=== PATIENT | female | born 1970 | race African-American/Black ===

== ENCOUNTER 2019-11-12 18:12 | Observation (INO) | payer BC ==
[2019-11-12] MEDS ORDERED: ASPIRIN 81 MG TABLET, CHEWABLE PO ONE (18:42)
--- NOTE | 2019-11-12 18:45 | ER Document Report ---
ED Medical Screen (RME) - General Chief Complaint: Chest Pain Stated Complaint: CHEST PAIN, LEFT ARM PAIN Time Seen by Provider: 11/12/19 18:40 Mode of Arrival: Ambulatory Information source: Patient Notes: Patient presents complaining of chest pain that started around 330 this afternoon while she was at work. Patient states pain radiates to the left arm. She does report shortness of breath. No cough or cold symptoms. No nausea or vomiting. Patient does report a history of hypertension and asthma. I have greeted and performed a rapid initial assessment of this patient. A comprehensive ED assessment and evaluation of the patient, analysis of test results and completion of the medical decision making process will be conducted by additional ED providers. - Related Data Allergies/Adverse Reactions: No Known Allergies Allergy (Verified 11/12/19 18:33) Past Medical History - Social History Frequency of alcohol use: None Drug Abuse: None Physical Exam - Vital signs Vitals: Temp Pulse Resp BP Pulse Ox 97.5 F 86 16 153/108 H 100 11/12/19 18:23 11/12/19 18:23 11/12/19 18:23 11/12/19 18:23 11/12/19 18:23 - Respiratory Respiratory status: No respiratory distress Chest status: Tender Breath sounds: Normal - Cardiovascular Rhythm: Regular Heart sounds: S1 appreciated, S2 appreciated Course - Vital Signs Vital signs: Temp Pulse Resp BP Pulse Ox 97.5 F 86 16 153/108 H 100 11/12/19 18:23 11/12/19 18:23 11/12/19 18:23 11/12/19 18:23 11/12/19 18:23
--- NOTE | 2019-11-12 19:02 | EKG REPORT ---
SEVERITY:- ABNORMAL ECG - SINUS RHYTHM LEFT ATRIAL ABNORMALITY LEFT VENTRICULAR HYPERTROPHY BORDERLINE T ABNORMALITIES, INFERIOR LEADS : Confirmed by: Jens Matt MD 12-Nov-2019 19:00:26
--- NOTE | 2019-11-12 19:04 | RADIOLOGY REPORT (SQ) ---
EXAM DESCRIPTION: CHEST 2 VIEWS COMPLETED DATE/TIME: 11/12/2019 6:54 pm REASON FOR STUDY: cp COMPARISON: None. NUMBER OF VIEWS: Two view. TECHNIQUE: Frontal and lateral radiographic views of the chest acquired. LIMITATIONS: None. FINDINGS: LUNGS AND PLEURA: Low lung volumes. No opacities, masses or pneumothorax. No pleural eff usion. MEDIASTINUM AND HILAR STRUCTURES: No masses. No contour abnormalities. HEART AND VASCULAR STRUCTURES: Heart normal in size and contour. No evidence for failure. BONES: No acute findings. HARDWARE: None in the chest. OTHER: No other significant finding. IMPRESSION: LOW LUNG VOLUMES. NO SIGNIFICANT RADIOGRAPHIC FINDING IN THE CHEST. TECHNICAL DOCUMENTATION: JOB ID: [id number] 2010 [employer]- All Rights Reserved Reading location - IP/workstation name: [email or web address]
[2019-11-12 19:57] LABS: ABSOLUTE BASOPHILS # (AUTO) 0.1 10^3/uL (0.0-0.2); ABSOLUTE EOSINOPHILS # (AUTO) 1.2 10^3/uL (0.0-0.6); ABSOLUTE LYMPHOCYTES (AUTO) 2.1 10^3/uL (0.5-4.7); ABSOLUTE MONOCYTES (AUTO) 0.6 10^3/uL (0.1-1.4); BASOPHILS % (AUTO) 0.4 % (0-2); EOSINOPHILS % (AUTO) 9.8 % (0-6); HEMATOCRIT 39.5 % (36.0-47.0); HEMOGLOBIN 13.5 g/dL (12.0-15.5); LYMPHOCYTES % (AUTO) 17.6 % (13-45); MEAN CORPUSCULAR HEMOGLOBIN 28.6 pg (27.0-33.4); MEAN CORPUSCULAR HGB CONC 34.2 g/dL (32.0-36.0); MEAN CORPUSCULAR VOLUME 84 fl (80-97); MONOCYTES % (AUTO) 4.9 % (3-13); PLATELET COUNT 252 10^3/uL (150-450); RED BLOOD COUNT 4.72 10^6/uL (3.72-5.28); RED CELL DISTRIBUTION WIDTH 13.7 % (11.5-14.0); SEGMENTED NEUTROPHILS % (AUTO) 67.3 % (42-78); TOTAL CELLS COUNTED % (AUTO) 100 %; WHITE BLOOD COUNT 11.9 10^3/uL (4.0-10.5)
[2019-11-12 20:17] LABS: ALBUMIN 4.4 g/dL (3.5-5.0); ALKALINE PHOSPHATASE 130 U/L (38-126); ANION GAP 8 (5-19); ASPARTATE AMINO TRANSFERASE 19 U/L (14-36); BILIRUBIN,TOTAL 0.3 mg/dL (0.2-1.3); BLOOD UREA NITROGEN 16 mg/dL (7-20); CALCIUM 9.4 mg/dL (8.4-10.2); CARBON DIOXIDE 28 mmol/L (22-30); CHLORIDE 101 mmol/L (98-107); GLUCOSE 110 mg/dL (75-110); POTASSIUM 4.3 mmol/L (3.6-5.0); TOTAL PROTEIN 7.9 g/dL (6.3-8.2)
--- NOTE | 2019-11-12 20:39 | ER Document Report ---
ED General - General Chief Complaint: Chest Pain Stated Complaint: CHEST PAIN, LEFT ARM PAIN Time Seen by Provider: 11/12/19 18:40 Mode of Arrival: Ambulatory Notes: 49-year-old female presents the emergency department complaining of chest pain that she describes as a pressure that feels like somebody sitting on the center in the left side of her chest. States the pain radiates to her left arm gives her headache. It worsens with exertion, does not really relieved when sitting down. She also complains of shortness of breath and pleuritic chest pain. Denies any cough or fevers. Denies any numbness or tingling. Denies prior similar symptoms. Family history is only hypertension and cancer, no family history of coronary artery disease or stroke. - Related Data Allergies/Adverse Reactions: No Known Allergies Allergy (Verified 11/12/19 18:33) Past Medical History - General Information source: Patient - Social History Smoking Status: Never Smoker Frequency of alcohol use: None Drug Abuse: None Family History: Hypertension, Malignancy. denies: CAD, CVA Patient has suicidal ideation: No Patient has homicidal ideation: No - Past Medical History Cardiac Medical History: Reports: Hx Hypertension Pulmonary Medical History: Reports: Hx Asthma Past Surgical History: Reports: Hx Appendectomy, Hx Section - x3 Review of Systems - Review of Systems Constitutional: No symptoms reported EENT: No symptoms reported Cardiovascular: See HPI, Chest pain Respiratory: See HPI, Hurts to breathe, Short of breath Musculoskeletal: See HPI -: Yes All other systems reviewed and negative Physical Exam - Vital signs Vitals: Temp Pulse Resp BP Pulse Ox 97.5 F 86 16 153/108 H 100 11/12/19 18:23 11/12/19 18:23 11/12/19 18:23 11/12/19 18:23 11/12/19 18:23 Interpretation: Hypertensive - Notes Notes: GENERAL: Alert, interacts well. No acute distress. HEAD: Normocephalic, atraumatic EYES: Pupils equal, round and reactive to light, extraocular movements intact. ENT: Oral mucosa moist, tongue midline. NECK: Full range of motion, supple, trachea midline. LUNGS: Clear to auscultation bilaterally, no wheezes, rales or rhonchi, no respiratory distress. No sternal tenderness palpation however she does have some tenderness to palpation when I push on her lateral ribs on both the left and right side. HEART: Regular rate and rhythm, no murmurs, gallops, rubs. ABDOMEN: Soft, nontender, nondistended, bowel sounds present in all 4 quadrants. EXTREMITIES: Moves all 4 extremities spontaneously, no edema, radial and dorsalis pedis pulses 2/4 bilaterally. No cyanosis. NEUROLOGICAL: Alert and oriented x3, normal speech. PSYCH: Normal mood, normal affect. SKIN: Warm, Dry, normal turgor, no rashes or lesions noted. Course - Re-evaluation Re-evalutation: 11/12/19 21:09 CBC shows slight leukocytosis 11.9, CMP unremarkable, initial troponin negative, chest x-ray shows low lung volumes, EKG has some T wave inversions. 3-hour delta troponin will be ordered along with repeat EKG. Patient will be given nitroglycerin for her chest pain and Tylenol for her headache. 11/12/19 21:10 Heart score is 4. 11/12/19 22:50 11/13/19 00:26 Chest pain resolved with nitroglycerin, did return after approximately 30 minutes, it has resolved with 1 further dose. Repeat troponin is negative. Heart score is 4. Will discuss with hospitalist for admission versus observation and possible stress test in the morning. - Vital Signs Vital signs: Temp Pulse Resp BP Pulse Ox 97.5 F 86 12 133/99 H 100 11/12/19 18:23 11/12/19 18:23 11/12/19 23:21 11/12/19 23:21 11/12/19 23:21 - Laboratory Result Diagrams: 11/12/19 19:38 11/12/19 19:38 Laboratory results interpreted by me: 11/12/19 11/12/19 19:38 19:38 WBC 11.9 H Eos % (Auto) 9.8 H Absolute Eos (auto) 1.2 H Alkaline Phosphatase 130 H - EKG Interpretation by Me Additional EKG results interpreted by me: 11/12/19 20:39 EKG shows sinus rhythm at a rate of 85, left axis deviation, normal intervals, LVH, no ST segment elevations or depressions, T wave inversions in 3 and aVF and V6 per my interpretation. 11/12/19 22:18 Repeat EKG shows sinus rhythm at a rate of 87, LVH, left axis deviation, T wave inversions in 3, aVF, V5 and V6. No ST segment elevations or depressions, T-wave inversions in lead V5 are new compared to prior EKG performed 3 hours prior per my interpretation. Discharge - Discharge Clinical Impression: Chest pain, rule out acute myocardial infarction, Chest pain with moderate risk of acute coronary syndrome Condition: Good Disposition: ADMITTED OBSERVATION Admitting Provider: Estuardo (Hospitalist) Unit Admitted: Telemetry
[2019-11-12] MEDS ORDERED: ACETAMINOPHEN 325 MG TABLET PO ONE (21:06)
[2019-11-12] MEDS: NITROGLYCERIN 0.4 MG/TAB 25 TAB/BOTTLE SL PRN ×2 (22:18→22:26)
[2019-11-13] MEDS: NITROGLYCERIN 0.4 MG/TAB 25 TAB/BOTTLE SL PRN (00:23)
[2019-11-13] MEDS ORDERED: ENOXAPARIN SODIUM INJ 100 MG/1 ML DISP.SYRIN SUBCUT ONE (00:26)
[2019-11-13] MEDS ORDERED: MAG HYDROX/AL HYDROX/SIMETH SUSP 30 ML UDCUP PO PRN (00:32)
[2019-11-13] MEDS ORDERED: NITROGLYCERIN 0.4 MG/TAB 25 TAB/BOTTLE SL PRN (00:32)
--- NOTE | 2019-11-13 04:00 | PDOC H&P ---
History of Present Illness Admission Date/PCP: 11/13/19 00:37 Patient complains of: Chest pain History of Present Illness: KRISTY AGARWAL is a 49 year old female with a past medical history of hypertension, asthma and obesity. She presents with 4 hours of intermittent left-sided chest pain that radiates to the left shoulder there is dull in nature that occurred while sitting at rest it is not associated with eating, nausea vomiting or palpitations. But she does endorse some mild shortness of breath without fever or cough. She is unable to identify alleviating or exacerbating factors. However the emergency department provider documents relief with nitroglycerin x3. She denies recent change in medication regiment she denies trauma to the chest wall or anxiety. Her work-up was unremarkable and she is referred to the hospitalist for observation. She denies recent stress test. Past Medical History Cardiac Medical History: Reports: Hypertension Pulmonary Medical History: Reports: Asthma Past Surgical History Past Surgical History: Reports: Appendectomy, Section - x3 Social History Information Source: Patient, Emergency Med Personnel Smoking Status: Never Smoker Drugs: None - Advance Directive Resuscitation Status: Full Code Family History Family History: Hypertension, Malignancy. denies: CAD, CVA Parental Family History Reviewed: Yes Children Family History Reviewed: Yes Sibling(s) Family History Reviewed.: Yes Medication/Allergy Allergies/Adverse Reactions: No Known Allergies Allergy (Verified 11/12/19 18:33) Review of Systems Constitutional: ABSENT: chills, fever(s), headache(s), weight gain, weight loss Eyes: ABSENT: visual disturbances Ears: ABSENT: hearing changes Cardiovascular: ABSENT: chest pain, dyspnea on exertion, edema, orthropnea, palpitations Respiratory: ABSENT: cough, hemoptysis Gastrointestinal: ABSENT: abdominal pain, constipation, diarrhea, hematemesis, hematochezia, nausea, vomiting Genitourinary: ABSENT: dysuria, hematuria Musculoskeletal: ABSENT: joint swelling Integumentary: ABSENT: rash, wounds Neurological: ABSENT: abnormal gait, abnormal speech, confusion, dizziness, focal weakness, syncope Psychiatric: ABSENT: anxiety, depression, homidical ideation, suicidal ideation Endocrine: ABSENT: cold intolerance, heat intolerance, polydipsia, polyuria Hematologic/Lymphatic: ABSENT: easy bleeding, easy bruising Physical Exam Vital Signs: Temp Pulse Resp BP Pulse Ox 98.0 F 91 16 136/93 H 99 11/13/19 03:00 11/13/19 03:00 11/13/19 03:00 11/13/19 03:00 11/13/19 03:00 Intake & Output 11/11/19 11/12/19 11/13/19 11:59 11:59 11:59 Weight 92.3 kg General appearance: PRESENT: no acute distress, well-developed, well-nourished Head exam: PRESENT: atraumatic, normocephalic Eye exam: PRESENT: conjunctiva pink, EOMI, PERRLA. ABSENT: scleral icterus Ear exam: PRESENT: normal external ear exam Mouth exam: PRESENT: moist, tongue midline Neck exam: ABSENT: carotid bruit, JVD, lymphadenopathy, thyromegaly Respiratory exam: PRESENT: clear to auscultation mario. ABSENT: rales, rhonchi, wheezes Cardiovascular exam: PRESENT: RRR. ABSENT: diastolic murmur, rubs, systolic murmur Pulses: PRESENT: normal dorsalis pedis pul Vascular exam: PRESENT: normal capillary refill GI/Abdominal exam: PRESENT: normal bowel sounds, soft. ABSENT: distended, guarding, mass, organolmegaly, rebound, tenderness Rectal exam: PRESENT: deferred Extremities exam: PRESENT: full ROM. ABSENT: calf tenderness, clubbing, pedal edema Neurological exam: PRESENT: alert, awake, oriented to person, oriented to place, oriented to time, oriented to situation, CN II-XII grossly intact. ABSENT: motor sensory deficit Psychiatric exam: PRESENT: appropriate affect, normal mood. ABSENT: homicidal ideation, suicidal ideation Skin exam: PRESENT: dry, intact, warm. ABSENT: cyanosis, rash Results Laboratory Results: 11/12/19 19:38 11/12/19 19:38 11/12/19 11/12/19 19:38 19:38 WBC 11.9 H RBC 4.72 Hgb 13.5 Hct 39.5 MCV 84 MCH 28.6 MCHC 34.2 RDW 13.7 Plt Count 252 Seg Neutrophils % 67.3 Sodium 137.1 Potassium 4.3 Chloride 101 Carbon Dioxide 28 Anion Gap 8 BUN 16 Creatinine 0.81 Est GFR ( Amer) > 60 Glucose 110 Calcium 9.4 Magnesium 1.9 Total Bilirubin 0.3 AST 19 Alkaline Phosphatase 130 H Total Protein 7.9 Albumin 4.4 11/12/19 11/12/19 19:38 22:52 Troponin I < 0.012 < 0.012 Impressions: Chest X-Ray 11/12/19 18:43 IMPRESSION: LOW LUNG VOLUMES. NO SIGNIFICANT RADIOGRAPHIC FINDING IN THE CHEST. Assessment and Plan - Diagnosis (1) Atypical chest pain Is this a current diagnosis for this admission?: Yes Plan: Atypical chest pain though the patient's pain is atypical there are multiple risk factors for coronary artery disease and subsequently will observe and evaluation of acute coronary syndrome versus coronary artery disease with anginal equivalents. Cardiac monitoring blood pressure Q6 hours ,TSH, lipid profile, serial cardiac enzymes and cardiac stress test (2) Hypertension Is this a current diagnosis for this admission?: Yes Plan: Cozaar ordered, hydralazine PRN - Time Time Spent with patient: 25-34 minutes
[2019-11-13] MEDS: FAMOTIDINE 20 MG TABLET PO SCH ×2 (09:32→17:16)
[2019-11-13] MEDS: ATORVASTATIN CALCIUM 80 MG TABLET PO SCH ×2 (09:33→22:13)
[2019-11-13] MEDS: LOSARTAN POTASSIUM 50 MG TABLET PO SCH (09:33)
[2019-11-13] MEDS: ASPIRIN 81 MG TABLET, ENT COATED PO SCH (09:33)
[2019-11-13] MEDS ORDERED: CYCLOBENZAPRINE HCL 10 MG TABLET PO PRN (11:12)
[2019-11-13] MEDS ORDERED: IPRATROPIUM/ALBUTEROL 0.5-2.5 MG/3 ML AMPUL NEB PRN (11:16)
--- NOTE | 2019-11-13 11:18 | EKG REPORT ---
SEVERITY:- ABNORMAL ECG - SINUS RHYTHM LVH BY VOLTAGE NONSPECIFIC T ABNORMALITIES, INFERIOR LEADS : Confirmed by: Jens Matt MD 13-Nov-2019 11:18:07
[2019-11-13] MEDS ORDERED: FLUTICASONE/VILANTEROL 100-25 MCG/DOSE IH ONE (12:30)
--- NOTE | 2019-11-13 13:17 | DRAGON STRESS TEST REPORT ---
Pharmacological nuclear stress test Date: November 13, 2019 Indication: Chest pain Procedure The patient presented to the stress lab. Initially rest images were obtained after injection of 14.87 mCi of technetium 99m sestamibi according to standard protocol. The patient's resting EKG showed sinus tachycardia at 101 bpm. The patient was administered 0.4 mg of regadenoson intravenously according to standard protocol as part of pharmacological stress. EKG and vital signs were monitored. There was no evidence of myocardial ischemia on the EKG by pharmacological stress. The patient did not have any chest pain during pharmacological stress. Subsequently, 42.4 mCi of technetium 99m sestamibi was administered according to protocol. After a stipulated interval according to protocol stress images were obtained. Raw as well as processed stress and rest images were reviewed. Attenuation correction was also utilized for the study. There was a fair amount of gut radioactive isotope uptake but this did not interfere with the quality of the study. Myocardial perfusion images show uniform distribution of radioactive isotope throughout the myocardium without any convincing evidence of fixed or reversible defects. Left ventricular ejection fraction was estimated at 57%. There was normal contractility on the stress as well as rest images. The TID ratio was 0.95. Conclusion There is no electrocardiographic evidence of myocardial ischemia by pharmacological stress. Myocardial perfusion images show no reversible perfusion defects to suggest myocardial ischemia. There is no evidence for myocardial infarction or scar. Left ventricular ejection fraction is normal and is estimated at 57%. Normal myocardial contractility Regular follow-up is recommended. MTDD
--- NOTE | 2019-11-13 14:09 | PDOC CONSULTATION ---
Consultation Consult Date: 11/13/19 Attending physician:: MARGOT RAPHAEL Provider Consulted: PO CANSECO Consult reason:: Chest pain History of Present Illness Admission Date/PCP: 11/13/19 00:37 Patient complains of: Chest pain History of Present Illness: KRISTY AGARWAL is a 49 year old female With the following active problems 1. Systemic hypertension 2. Obesity 3. Asthma Patient presents with complaints of left-sided intermittent dull aching chest pain with questionable radiation to the left shoulder with some numbness and tingling of that extremity. No associated symptoms. No particular relationship with activity or exercise. 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 She does not report use of tobacco or alcohol. No major surgeries reported Family history significant for breast cancer no premature coronary artery disease reported. Past Medical History Cardiac Medical History: Reports: Hypertension Pulmonary Medical History: Reports: Asthma Past Surgical History Past Surgical History: Reports: Appendectomy, Section - x3 Social History Smoking Status: Never Smoker Drugs: None - Advance Directive Resuscitation Status: Full Code Family History Family History: Hypertension, Malignancy. denies: CAD, CVA Parental Family History Reviewed: Yes - Family history of breast cancer. No premature coronary artery disease Children Family History Reviewed: NA Sibling(s) Family History Reviewed.: NA Medication/Allergy Home Medications: Budesonide/Formoterol Fumarate [Symbicort HFA 160-4.5 mcg Inhaler 6 gm] 2 puff IH Q12 11/13/19 Cyclobenzaprine HCl [Flexeril 10 mg Tablet] 10 mg PO DAILYP PRN 11/13/19 Ibuprofen [Motrin 800 mg Tablet] 800 mg PO Q8HP PRN 11/13/19 Metoprolol Succinate [Toprol Xl 50 mg Tab.sr] 50 mg PO QAM 11/13/19 Montelukast Sodium [Singulair 10 mg Tablet] 10 mg PO QAM 11/13/19 Allergies/Adverse Reactions: No Known Allergies Allergy (Verified 11/12/19 18:33) Review of Systems Cardiovascular: PRESENT: chest pain Respiratory: ABSENT: as per HPI, cough, dyspnea, hemoptysis, sputum, other Gastrointestinal: ABSENT: as per HPI, abdominal pain, bloating, coffee ground emesis, constipation, diarrhea, dysphagia, heartburn, hematemesis, hematochezia, melena, nausea, vomiting, other Integumentary: PRESENT: as per HPI Physical Exam Vital Signs: Temp Pulse Resp BP Pulse Ox 97.7 F 103 H 16 135/79 H 100 11/13/19 11:49 11/13/19 11:49 11/13/19 11:49 11/13/19 11:49 11/13/19 11:49 Intake & Output 11/12/19 11/13/19 11/14/19 06:59 06:59 06:59 Weight 92.3 kg General appearance: PRESENT: no acute distress, obese, well-developed, well- nourished Head exam: PRESENT: atraumatic Eye exam: PRESENT: conjunctiva pink, EOMI Mouth exam: PRESENT: moist Respiratory exam: PRESENT: symmetrical, unlabored Cardiovascular exam: PRESENT: RRR, +S1, +S2 Pulses: PRESENT: normal radial pulses GI/Abdominal exam: PRESENT: soft Rectal exam: PRESENT: deferred Musculoskeletal exam: PRESENT: normal inspection Neurological exam: PRESENT: alert, awake, oriented to person, oriented to place, oriented to time, oriented to situation Psychiatric exam: PRESENT: appropriate affect Skin exam: PRESENT: dry, intact, normal color Results Laboratory Results: 11/12/19 19:38 11/12/19 19:38 11/12/19 11/12/19 19:38 19:38 WBC 11.9 H RBC 4.72 Hgb 13.5 Hct 39.5 MCV 84 MCH 28.6 MCHC 34.2 RDW 13.7 Plt Count 252 Seg Neutrophils % 67.3 Sodium 137.1 Potassium 4.3 Chloride 101 Carbon Dioxide 28 Anion Gap 8 BUN 16 Creatinine 0.81 Est GFR ( Amer) > 60 Glucose 110 Calcium 9.4 Magnesium 1.9 Total Bilirubin 0.3 AST 19 Alkaline Phosphatase 130 H Total Protein 7.9 Albumin 4.4 11/12/19 11/12/19 11/13/19 19:38 22:52 08:07 Troponin I < 0.012 < 0.012 < 0.012 EKG Comments: Twelve-lead EKG 11/12/2019. 1818 Independently viewed by me Sinus rhythm, 85 bpm, left atrial abnormality, left ventricular hypertrophy, nonspecific T wave abnormality, normal AV conduction, QTC is 405 ms Chest x-ray 11/12/2019. Low lung volumes. No abnormal radiographic finding. Cardiac troponin negative x3 Impressions: Chest X-Ray 11/12/19 18:43 IMPRESSION: LOW LUNG VOLUMES. NO SIGNIFICANT RADIOGRAPHIC FINDING IN THE CHEST. Assessment & Plan - Diagnosis (1) Atypical chest pain Is this a current diagnosis for this admission?: Yes Plan: Atypical chest pain Twelve-lead EKG is nondiagnostic for myocardial ischemia Cardiac biomarkers are negative Based on description of symptoms and with risk factors for coronary disease incl uding systemic hypertension as well as age we proceeded with pharmacological nuclear stress test Nuclear stress test shows normal myocardial perfusion without any convincing evidence for reversible or fixed defects to suggest myocardial ischemia or infarction. Left ventricular ejection fraction is preserved on the stress images. There is normal myocardial contractility Taken together the above results and findings suggest low cardiac risk and it is unlikely that myocardial ischemia is responsible for symptoms. Would recommend continued modification of risk factors for coronary artery disease including paying attention to hypertension as well as obesity. Outpatient follow-up is recommended to further pursue the symptom.
[2019-11-13] MEDS ORDERED: REGADENOSON INJ 0.4 MG/5 ML DISP.SYRIN IV ONE (14:31)
[2019-11-14] MEDS ORDERED: MONTELUKAST SODIUM 10 MG TABLET PO SCH (08:00)
[2019-11-14] MEDS ORDERED: METOPROLOL SUCCINATE 50 MG TAB.SR.24H PO SCH (08:00)
[2019-11-14] MEDS: LOSARTAN POTASSIUM 50 MG TABLET PO SCH (09:12)
[2019-11-14] MEDS: FAMOTIDINE 20 MG TABLET PO SCH (09:12)
[2019-11-14] MEDS: ASPIRIN 81 MG TABLET, ENT COATED PO SCH (09:12)
[2019-11-14] MEDS ORDERED: FLUTICASONE/VILANTEROL 100-25 MCG/DOSE IH SCH (10:00)
--- NOTE | 2019-11-14 11:52 | PDOC DISCHARGE SUMMARY ---
Impression - Admit/DC Date/PCP Admission Date/Primary Care Provider: 11/13/19 00:37 Discharge Date: 11/14/19 - Discharge Diagnosis (1) Atypical chest pain Is this a current diagnosis for this admission?: Yes (2) Hypertension Is this a current diagnosis for this admission?: Yes - Additional Information Resuscitation Status: Full Code Discharge Diet: As Tolerated Home Medications: Budesonide/Formoterol Fumarate [Symbicort HFA 160-4.5 mcg Inhaler 6 gm] 2 puff IH Q12 11/13/19 Cyclobenzaprine HCl [Flexeril 10 mg Tablet] 10 mg PO DAILYP PRN 11/13/19 Ibuprofen [Motrin 800 mg Tablet] 800 mg PO Q8HP PRN 11/13/19 Metoprolol Succinate [Toprol Xl 50 mg Tab.sr] 50 mg PO QAM 11/13/19 Montelukast Sodium [Singulair 10 mg Tablet] 10 mg PO QAM 11/13/19 History of Present Illiness History of Present Illness: KRISTY AGARWAL is a 49 year old female with a past medical history of hypertension, asthma and obesity. She presents with 4 hours of intermittent left-sided chest pain that radiates to the left shoulder there is dull in nature that occurred while sitting at rest it is not associated with eating, nausea vomiting or palpitations. But she does endorse some mild shortness of breath without fever or cough. She is unable to identify alleviating or exacerbating factors. However the emergency department provider documents relief with nitroglycerin x3. She denies recent change in medication regiment she denies trauma to the chest wall or anxiety. Her work-up was unremarkable and she is referred to the hospitalist for observation. She denies recent stress test. Hospital Course Hospital Course: Patient was admitted for evaluation of atypical chest pain. Troponin was trended and was negative x3. Patient's chest x-ray was also unremarkable. Patient was evaluated by hydrology teacher. Patient underwent a Cardiolite stress test which was normal indicating that coronary artery disease is unlikely. Patient's chest pain has resolved since yesterday. At this time patient is doing well and stable for discharge home. Patient has been instructed to follow-up with her primary care provider for further care. Physical Exam Vital Signs: Temp Pulse Resp BP Pulse Ox 98.2 F 92 17 111/66 96 11/14/19 07:17 11/14/19 07:17 11/14/19 07:17 11/14/19 07:17 11/14/19 07:17 Intake & Output 11/13/19 11/14/19 11/15/19 06:59 06:59 06:59 Intake Total 380 Balance 380 Weight 92.3 kg 93.2 kg General appearance: PRESENT: no acute distress, cooperative Respiratory exam: PRESENT: unlabored Cardiovascular exam: ABSENT: tachycardia Neurological exam: PRESENT: alert, awake Results Laboratory Results: WBC 11.9 10^3/uL (4.0-10.5) H 11/12/19 19:38 RBC 4.72 10^6/uL (3.72-5.28) 11/12/19 19:38 Hgb 13.5 g/dL (12.0-15.5) 11/12/19 19:38 Hct 39.5 % (36.0-47.0) 11/12/19 19:38 MCV 84 fl (80-97) 11/12/19 19:38 MCH 28.6 pg (27.0-33.4) 11/12/19 19:38 MCHC 34.2 g/dL (32.0-36.0) 11/12/19 19:38 RDW 13.7 % (11.5-14.0) 11/12/19 19:38 Plt Count 252 10^3/uL (150-450) 11/12/19 19:38 Lymph % (Auto) 17.6 % (13-45) 11/12/19 19:38 [place] % (Auto) 4.9 % (3-13) 11/12/19 19:38 Eos % (Auto) 9.8 % (0-6) H 11/12/19 19:38 Baso % (Auto) 0.4 % (0-2) 11/12/19 19:38 Absolute Neuts (auto) 8.0 10^3/uL (1.7-8.2) 11/12/19 19:38 Absolute Lymphs (auto) 2.1 10^3/uL (0.5-4.7) 11/12/19 19:38 Absolute Monos (auto) 0.6 10^3/uL (0.1-1.4) 11/12/19 19:38 Absolute Eos (auto) 1.2 10^3/uL (0.0-0.6) H 11/12/19 19:38 Absolute Basos (auto) 0.1 10^3/uL (0.0-0.2) 11/12/19 19:38 Seg Neutrophils % 67.3 % (42-78) 11/12/19 19:38 Sodium 137.1 mmol/L (137-145) 11/12/19 19:38 Potassium 4.3 mmol/L (3.6-5.0) 11/12/19 19:38 Chloride 101 mmol/L (98-107) 11/12/19 19:38 Carbon Dioxide 28 mmol/L (22-30) 11/12/19 19:38 Anion Gap 8 (5-19) 11/12/19 19:38 BUN 16 mg/dL (7-20) 11/12/19 19:38 Creatinine 0.81 mg/dL (0.52-1.25) 11/12/19 19:38 Est GFR ( Amer) > 60 (>60) 11/12/19 19:38 Est GFR (MDRD) Non-Af > 60 (>60) 11/12/19 19:38 Glucose 110 mg/dL (75-110) 11/12/19 19:38 Calcium 9.4 mg/dL (8.4-10.2) 11/12/19 19:38 Magnesium 1.9 mg/dL (1.6-2.3) 11/12/19 19:38 Total Bilirubin 0.3 mg/dL (0.2-1.3) 11/12/19 19:38 Direct Bilirubin 0.0 mg/dL (0.0-0.4) 11/12/19 19:38 Neonat Total Bilirubin Not Reportable 11/12/19 19:38 Neonat Direct Bilirubin Not Reportable 11/12/19 19:38 Neonat Indirect Bili Not Reportable 11/12/19 19:38 AST 19 U/L (14-36) 11/12/19 19:38 ALT 12 U/L (<35) 11/12/19 19:38 Alkaline Phosphatase 130 U/L (38-126) H 11/12/19 19:38 Troponin I < 0.012 ng/mL 11/13/19 08:07 Total Protein 7.9 g/dL (6.3-8.2) 11/12/19 19:38 Albumin 4.4 g/dL (3.5-5.0) 11/12/19 19:38 11/12/19 11/12/19 11/13/19 19:38 22:52 08:07 Troponin I < 0.012 < 0.012 < 0.012 Impressions: Chest X-Ray 11/12/19 18:43 IMPRESSION: LOW LUNG VOLUMES. NO SIGNIFICANT RADIOGRAPHIC FINDING IN THE CHEST. Plan Time Spent: Less than 30 Minutes Stroke Is this a Stroke Patient?: No Acute Heart Failure - Is this a Heart Failure Patient?: No
[2019-11-14 12:20] VITALS: BP 136/93
== END 2019-11-14 13:40 | disposition home or self-care (01) ==
LOC: ER 18:12 → EH 11-13 00:37 → 4N 11-13 02:57
PROVIDERS: ADMIT Internal Medicine; ATTEND Internal Medicine
DX: R07.89 Other chest pain (principal); I10 Essential (primary) hypertension; J45.909 Unspecified asthma, uncomplicated; E66.9 Obesity, unspecified; R20.0 Anesthesia of skin; R20.2 Paresthesia of skin; R07.81 Pleurodynia; M79.602 Pain in left arm; R51 Headache; R06.02 Shortness of breath; Z79.899 Other long term (current) drug therapy; Z82.49 Family history of ischemic heart disease and other diseases of the circulatory system; Z90.49 Acquired absence of other specified parts of digestive tract; Z80.3 Family history of malignant neoplasm of breast
CPT/HCPCS: 93005; 99285; 96372; 36415 ×2; 83735; 85025; 80053; 84484 ×2; 93017; 71046; 78452; 93010; G0378 ×3; A9500; J2785; J1650; Q9969; J3490

== ENCOUNTER → 2020-07-28 | Outpatient (CLI) | payer BC ==
--- NOTE | 2020-07-28 12:43 | RADIOLOGY REPORT (SQ) ---
EXAM DESCRIPTION: VENOUS UNILATERAL LOWER IMAGES COMPLETED DATE/TIME: 07/28/2020 12:12 pm REASON FOR STUDY: RLE PAIN M79.604 PAIN IN RIGHT LEG COMPARISON: None. TECHNIQUE: Dynamic and static velasco scale and color images acquired of the right leg venous system. S elected spectral images acquired with additional compression and augmentation maneuvers. The contrala teral common femoral vein and saphenofemoral junction were also imaged. Images stored on PACS. LIMITATIONS: None. FINDINGS: COMMON FEMORAL: Normal phasicity, compression and augmentation. No visualized echogenic ma terial on velasco scale. No defects on color images. FEMORAL: Normal compression and augmentation. No visualized echogenic material on velasco scale. No defe cts on color images. POPLITEAL: Normal compression, augmentation. No visualized echogenic material on velasco scale. No defec ts on color images. CALF VESSELS: Normal compression, augmentation. No visualized echogenic material on velasco scale. No de fects on color images. GSV and SSV: Normal compression, augmentation. No visualized echogenic material on velasco scale. No def ects on color images. ANY DEEP VENOUS INSUFFICIENCY: Not evaluated. ANY EVIDENCE OF POPLITEAL CYST: No. OTHER: No other significant finding. CONTRALATERAL COMMON FEMORAL VEIN AND SAPHENOFEMORAL JUNCTION: Normal phasicity, compression and augmentation. No visualized echogenic material on velasco scale. No de fects on color images. IMPRESSION: NO EVIDENCE DVT OR SVT IN THE RIGHT LEG. TECHNICAL DOCUMENTATION: JOB ID: [id number] 2010 [employer]- All Rights Reserved Reading location - IP/workstation name: [email or web address]
== END ==
LOC: SP 12:51
PROVIDERS: ATTEND Physician Assistant
DX: M79.604 Pain in right leg (principal)
CPT/HCPCS: 93971